=== PATIENT | male | born 1960 | race American Indian/Alaskan Native ===

== ENCOUNTER 2020-09-07 06:12 | Day surgery (SDC) | payer BC ==
[~2020-09-07 06:12] MED LIST: LACTATED RINGERS 1,000 ML IV SCH; MIDAZOLAM 2 MG/2 ML INJ IV NR
--- NOTE | 2020-09-07 07:14 | Anesthesia Day of Surgery ---
Anesthesia Day of Surgery - Day of Surgery Patient Examined: Yes Patient H&P Reviewed: Yes Patient is NPO: Yes
--- NOTE | 2020-09-07 07:14 | Anesthesia Consultation ---
Anesthesia Consult and Med Hx Date of service: 09/07/20 - Airway Anesthetic Teeth Evaluation: Good ROM Head & Neck: Adequate Mental/Hyoid Distance: Adequate Mallampati Class: Class II Intubation Access Assessment: Good - Pulmonary Exam CTA: Yes - Cardiac Exam Cardiac Exam: RRR - Pre-Operative Health Status ASA Pre-Surgery Classification: ASA2 Proposed Anesthetic Plan: General - Central Nervous System Hx Psychiatric Problems: No - Endocrine Hx Non-Insulin Dependent Diabetes: Yes - Other Systems Hx Alcohol Use: Yes (Occas) Hx Cancer: No
[2020-09-07] MEDS ORDERED: LIDOCAINE MPF (2%) 20 MG/1 ML VIAL 5 ML ONE (07:42)
[2020-09-07] MEDS ORDERED: propofoL 200 MG/20 ML VIAL IV ONE (07:43)
[2020-09-07] MEDS ORDERED: fentaNYL 100 MCG/2 ML INJ IV PRN (08:00)
[2020-09-07] MEDS ORDERED: ONDANSETRON 4 MG/2 ML INJ ONE (08:00)
[2020-09-07] MEDS ORDERED: GENTAMICIN/NS 80 MG/100 ML 100 ML IV SCH (08:00)
[2020-09-07] MEDS ORDERED: dexAMETHasone 20 MG/5 ML VIAL ONE (08:00)
[2020-09-07] MEDS ORDERED: ONDANSETRON 4 MG/2 ML INJ IV PRN (08:00)
[2020-09-07] MEDS ORDERED: KETOROLAC 30 MG/1 ML INJ ONE (08:00)
[2020-09-07] MEDS ORDERED: ceFAZolin/STERILE WATER 2 GM/20 ML SYRINGE IV NR (08:00)
[2020-09-07] MEDS ORDERED: WATER FOR IRRIG STERILE 1,500 ML BOTTLE IR ONE (08:05)
[2020-09-07] MEDS ORDERED: WATER FOR IRRIG STERILE 2000 ML IR ONE (08:05)
[2020-09-07] MEDS ORDERED: IOHEXOL 300 MG/ML 50ML IV ONE (08:05)
--- NOTE | 2020-09-07 08:37 | Short Stay Summary ---
Short Stay Documentation Date of service: 09/07/20 - History H&P: obtained from office - Allergies and Medications Current Medications: Allergies No Known Allergies Allergy (Unverified 08/31/20 15:31) Home Medications Medication Instructions Recorded Confirmed Last Taken Type Ergocalciferol(Vitamin D2)(Nf) 400 unit PO DAILY 08/31/20 08/31/20 09/06/20 History [Vitamin D (Nf)] [place]-3 Fatty Acids/Fish Oil [Fish 1,000 mg PO DAILY 08/31/20 08/31/20 09/06/20 History Oil] glipiZIDE [Glucotrol] 5 mg PO QDAY 08/31/20 08/31/20 09/06/20 History lisinopriL [Lisinopril] 10 mg PO DAILY 08/31/20 08/31/20 09/06/20 History metFORMIN [Glucophage] 500 mg PO QDAY 08/31/20 08/31/20 09/06/20 History Active Medications Cefazolin Sodium (Cefazolin/Sterile Water 2 Gm/20 Ml Syringe) 2 gm IV PREOP NR Stop: 09/07/20 21:00 Fentanyl (Fentanyl 100 Mcg/2 Ml Inj) 50 mcg IV Q5MIN PRN PRN Reason: Pain , Severe (7-10) Stop: 09/07/20 17:00 Lactated Ringer's (Lactated Ringers) 1,000 mls @ 100 mls/hr IV DIRECT KAREN Stop: 09/07/20 23:59 Last Admin: 09/07/20 06:55 Dose: 100 mls/hr Documented by: Gentamicin Sulfate/Sodium Chloride (Gentamicin/Ns 80 Mg/100 Ml) 100 mls @ 200 mls/hr IV ONCE KAREN Stop: 09/07/20 21:00 Midazolam HCl (Midazolam 2 Mg/2 Ml Inj) 2 mg IV PREOP NR Stop: 09/07/20 20:00 Last Admin: 09/07/20 07:10 Dose: 2 mg Documented by: Ondansetron HCl (Ondansetron 4 Mg/2 Ml Inj) 4 mg IV ONCE PRN PRN Reason: Nausea And Vomiting Stop: 09/07/20 18:00 - Brief post op/procedure progress note Date of procedure: 09/07/20 Pre-op diagnosis: elevate psa, BPH Post-op diagnosis: same Procedure: cysto, rpg, pus 30cc & biopsy Anesthesia: GETA Surgeon: MELINDA ELENA Estimated blood loss: minimal Pathology: list Specimen disposition: to lab (prostate cores) Condition: stable - Hospital course Hospital course: bactrim & norco-erx done, post op info on chart - Disposition Condition at discharge: Stable Disposition: DC-01 TO HOME OR SELFCARE Short Stay Discharge Plan Follow up with: PRIMARY CARE, [Primary Care Provider] - 7 Days
--- NOTE | 2020-09-07 08:49 | Ultrasound Report ---
Ultrasound transrectal HISTORY: Elevated PSA, guidance for prostate biopsy FINDINGS: Transrectal ultrasound guidance was provided by radiology for prostate biopsy by urology. T he prostate gland measures 3.4 x 2.1 x 4.1 cm with volume of 15.2 cc. Please correlate with the proce dural report by urology as needed. IMPRESSION: Successful ultrasound-guided prostate biopsy. Signer Name: Bruce Hyatt Jr, MD Signed: 09/07/2020 8:44 AM Workstation Name: [id number]
[2020-09-07] MEDS ORDERED: ACETAMINOPHEN 500 MG TAB PO SCH (09:00)
--- NOTE | 2020-09-07 09:10 | Fluoroscopy Report ---
FLUOROSCOPY RETROGRADE UROGRAPHY HISTORY: Elevated PSA FINDINGS: Fluoroscopy was provided by radiology during retrograde urography by the urologist. There i s normal filling of both renal collecting systems. No filling defect or abnormal dilatation is identi fied. IMPRESSION: Unremarkable bilateral retrograde pyelograms Fluoroscopy time: 21 seconds Fluoroscopic images: 7 Signer Name: Bruce Hyatt Jr, MD Signed: 09/07/2020 9:06 AM Workstation Name: [id number]
--- NOTE | 2020-09-07 09:23 | Operative Report ---
DATE OF SURGERY: 09/07/2020 PREOPERATIVE DIAGNOSES: Elevated PSA 13, right prostate nodule, benign prostate hypertrophy. POSTOPERATIVE DIAGNOSES: Elevated PSA 13, right prostate nodule, benign prostate hypertrophy. PROCEDURE: Cystoscopy, bilateral retrograde pyelograms, transrectal ultrasound biopsy of prostate 30 g gland. SURGEON: Magan Hart MD. ANESTHESIA: General. ESTIMATED BLOOD LOSS: Minimal. FLUIDS: Crystalloid. COMPLICATIONS: No complications. INDICATIONS: The patient is a 60-year-old gentleman with an elevated PSA. He has had 2 prostate biopsies in the past done in [place] by Dr. Doc Hawley that were negative (verbal). Recent PSA in our office was 13, MRI of the prostate revealed a 1.3 cm right prostatic lesion. We discussed fusion biopsy versus saturation biopsy. He agreed to proceed under anesthesia. DESCRIPTION OF PROCEDURE: The patient was taken to the operative suite, placed in the supine position. After adequate general anesthesia, he was prepped and draped in a sterile fashion. He was placed in the dorsal lithotomy position. Pancystourethroscopy was performed with a 22-[place] cystoscope. No urethral abnormalities. His prostate did display some mild to moderate trilobar obstruction. Bladder, no tumors or stones were noted. Had some mild calcification suggestive of small stones. Also, bladder was noted to have mild diffuse trabeculation. Both ureteral orifices in normal position. Bilateral retrograde pyelograms were obtained with an 8-[place] Merlyn catheter and 8 mL of contrast. No filling defects or obstruction. Also, of note, had two devices noted in the lumbar area suggestive of previous surgery. Next, using a transrectal probe, transrectal ultrasound of the prostate was performed in sagittal and transverse plane revealing a 30 gram gland. There was an area of multiple calcifications on the right side. A 24 core biopsy was taken at the base, mid apex of the prostate. Two additional cores were taken from this right prosthetic area and was labeled nodule. Rectal exam was benign. Bladder was drained. He was extubated and taken to recovery room. He will go home on Bactrim and [place]. TID: [id number] RECEIPT: [id number] C/STD
--- NOTE | 2020-09-07 09:37 | Post Anesthesia Evaluation ---
- Post Anesthesia Evaluation Patient Participated: Yes Airway Patent: Yes Stable Respiratory Function: Yes Nausea/Vomiting: No Temp > 96.8F: Yes Pain Manageable: Yes Adequeate Hydration: Yes Anesthesia Complications: No
[2020-09-07 11:00] VITALS: BP 136/85
== END 2020-09-07 09:35 | disposition home or self-care (01) ==
LOC: OR 06:12
PROVIDERS: ATTEND Urology
DX: R97.20 Elevated prostate specific antigen [PSA] (principal); N40.0 Benign prostatic hyperplasia without lower urinary tract symptoms; E11.9 Type 2 diabetes mellitus without complications; Z72.89 Other problems related to lifestyle; Z79.899 Other long term (current) drug therapy; Z88.8 Allergy status to other drugs, medicaments and biological substances; Z79.84 Long term (current) use of oral hypoglycemic drugs; Z98.890 Other specified postprocedural states
CPT/HCPCS: 52005; 55700; 74420; 76872; 82962; 88305; A4217; C1758; J0690; J1100; J1580; J1885; J2250; J2405; J2704; J3010; J7120; Q9967

== ENCOUNTER 2021-09-11 06:06 | Observation (INO) | payer BC ==
[2021-09-05 11:42] LABS: Hematocrit 37.5 % (35.5-45.6); Hemoglobin 12.5 gm/dl (11.8-15.2); Mean Corpuscular HGB Conc 33 % (32-34); Mean Corpuscular Volume 83 fl (84-94); Platelet Count 182 K/mm3 (140-440); Red Cell Distribution Width 14.8 % (13.2-15.2)
[2021-09-05 11:59] LABS: Alanine Aminotransferase 19 units/L (7-56); Albumin 4.6 g/dL (3.9-5); BUN/Creatinine Ratio 13; Blood Urea Nitrogen 15 mg/dL (9-20); Calcium 9.7 mg/dL (8.4-10.2); Hemolysis Index 8
[2021-09-11] MEDS ORDERED: BACTERIOSTATIC SODIUM CHLORIDE 0.9% 30 ML VIAL INFILTRATI ONE (06:41)
[2021-09-11] MEDS ORDERED: LACTATED RINGERS 1,000 ML IV SCH (06:45)
[2021-09-11] MEDS ORDERED: ceFAZolin/Water 2 GM/20 ML 2 GM/20 ML SYRINGE IV ONE (07:01)
--- NOTE | 2021-09-11 07:29 | Anesthesia Day of Surgery ---
Anesthesia Day of Surgery - Day of Surgery Patient Examined: Yes Patient H&P Reviewed: Yes Patient is NPO: Yes
--- NOTE | 2021-09-11 07:30 | Anesthesia Consultation ---
Anesthesia Consult and Med Hx Date of service: 09/11/21 - Airway Anesthetic Teeth Evaluation: Good, Crowns ROM Head & Neck: Adequate Mental/Hyoid Distance: Adequate Mallampati Class: Class II - Pre-Operative Health Status ASA Pre-Surgery Classification: ASA2 Proposed Anesthetic Plan: General Nerve Block: TAP - Pulmonary Hx Smoking: No Hx Respiratory Symptoms: No (+2FS) Hx Sleep Apnea: No (VINCENT PRE SCREEN LOW RISK) - Cardiovascular System Hx Hypertension: No (TAKES LISINOPRIL FOR KIDNEY PROTECTION ONLY) - Central Nervous System Hx Psychiatric Problems: No - Gastrointestinal Hx Gastroesophageal Reflux Disease: No - Endocrine Hx Non-Insulin Dependent Diabetes: Yes - Hematic Hx Anemia: No - Other Systems Hx Alcohol Use: Yes (Occas) Hx Cancer: No Hx Obesity: No
[2021-09-11] MEDS ORDERED: BUPIVACAINE/PF (0.25%) 2.5 MG/ML 30 ML VIAL INFILTRATI ONE (07:38)
[2021-09-11] MEDS ORDERED: dexAMETHasone 4 MG/ML VIAL ONE (07:38)
[2021-09-11] MEDS ORDERED: LIDOCAINE MPF (2%) 20 MG/1 ML VIAL 5 ML ONE (07:39)
[2021-09-11] MEDS ORDERED: ROCURONIUM 50 MG/5 ML INJ IV ONE ×2 (07:39→10:08)
[2021-09-11] MEDS ORDERED: propofoL 200 MG/20 ML VIAL IV ONE (07:40)
[2021-09-11] MEDS ORDERED: LIDOCAINE (1%) 10 MG/1 ML VIAL 20 ML MDV ONE (07:45)
[2021-09-11] MEDS ORDERED: CALCIUM CHLORIDE 1,000 MG/10 ML SYRINGE IV ONE ×3 (07:47→09:35)
[2021-09-11] MEDS ORDERED: THROMBIN (RECOMBINANT) 5,000 UNIT VIAL TP ONE ×2 (07:47→09:35)
[2021-09-11] MEDS: MIDAZOLAM 2 MG/2 ML INJ IV NR ×2 (07:59→08:05)
[2021-09-11] MEDS ORDERED: MAGNESIUM OXIDE 400 MG TAB PO SCH (08:00)
[2021-09-11] MEDS ORDERED: ONDANSETRON 4 MG/2 ML INJ IV PRN ×2 (08:00→16:00)
[2021-09-11] MEDS ORDERED: CELECOXIB 200 MG CAP PO NR (08:00)
[2021-09-11] MEDS ORDERED: HYDROmorphone 1 MG/1 ML INJ IV PRN ×2 (08:00)
[2021-09-11] MEDS ORDERED: fentaNYL 100 MCG/2 ML INJ IV SCH (08:00)
[2021-09-11] MEDS ORDERED: ACETAMINOPHEN 500 MG TAB PO SCH (08:00)
[2021-09-11] MEDS ORDERED: ceFAZolin/STERILE WATER 2 GM/20 ML SYRINGE IV NR (08:30)
[2021-09-11] MEDS ORDERED: LACTATED RINGERS 1,000 ML ONE (09:34)
[2021-09-11] MEDS ORDERED: dexAMETHasone 20 MG/5 ML VIAL ONE (09:34)
[2021-09-11] MEDS ORDERED: ANTICOAGULANT SOD CITRATE SOLUTION MC ONE (09:35)
[2021-09-11] MEDS ORDERED: SODIUM CHLORIDE 0.9% IRRIG SOLN 2000 ML IR ONE (09:37)
[2021-09-11] MEDS ORDERED: WATER FOR IRRIG STERILE 1,500 ML BOTTLE IR ONE (09:37)
[2021-09-11] MEDS ORDERED: SODIUM CHLORIDE 0.9% 100 ML ONE (10:31)
[2021-09-11] MEDS ORDERED: GLYCOPYRROLATE 0.4 MG/2 ML INJ ONE (11:15)
[2021-09-11] MEDS ORDERED: NEOSTIGMINE 10MG/10 ML INJ MDV ONE (11:15)
[2021-09-11] MEDS ORDERED: INSULIN LISPRO 100 UNIT/ML SUB-Q NR (12:00)
--- NOTE | 2021-09-11 12:07 | Post Anesthesia Evaluation ---
- Post Anesthesia Evaluation Patient Participated: Yes Airway Patent: Yes Stable Respiratory Function: Yes Nausea/Vomiting: No Temp > 96.8F: Yes Pain Manageable: Yes Adequeate Hydration: Yes Anesthesia Complications: No Block Receding Appropriately: Yes Patient on Ventilator: No
--- NOTE | 2021-09-11 12:26 | Operative Report ---
DATE OF SURGERY: 09/11/2021 PREOPERATIVE DIAGNOSIS: Prostate cancer. POSTOPERATIVE DIAGNOSIS: Prostate cancer. PROCEDURES: Robotic-assisted laparoscopic prostatectomy, bladder neck suspension, stem cell placement. SURGEON: Magan Hart MD ANESTHESIA: General. LEAD TECHNICAL WRITER: Janeth Lopez. ESTIMATED BLOOD LOSS: 450 mL. FLUIDS: Crystalloid, 200 mL Cell Saver. COMPLICATIONS: No complications. DRAINS: Amando-French drain x 1. INDICATIONS: This patient is a 61-year-old gentleman known to our service, had moved from [place] with a diagnosis of an elevated PSA and biopsy negative x 2. PSA continued to rise to 13. Repeat biopsy revealed [place] 6 adenocarcinoma of the prostate. CT bone scan revealed a right-sided renal mass for which he underwent a partial nephrectomy by Dr. Castorena in our group. He presents now for treatment of his prostate cancer. Risks, benefits, complications were explained. He was notified how we use stem cells. DESCRIPTION OF PROCEDURE: The patient was taken to the operative suite, placed in a supine position. After adequate general anesthesia, he was placed in modified dorsal lithotomy position, prepped and draped in a sterile fashion. De La Paz catheter was placed on the operative field. A 1 cm supraumbilical incision was made with a Bovie. Anterior traction was placed. A Veress needle was used for drop test, which was negative. Opening pressure was 2 cm of water. Insufflation of the abdomen to 15 cm of water was performed without difficulty. The 0-degree lens was placed in the supraumbilical port under direct vision. No signs of metastasis or injury. The other ports were placed under direct vision as well. They were marked, 15 cm cephalad to pubic symphysis, 9 cm lateral and then additional 9 cm lateral were used for the 8 mm robotic ports on the left, an 8 mm robotic port on the right as well as a 10 mm and 5 mm helper port. The patient was then placed in exaggerated dorsal lithotomy position. Robotic cart was docked between the legs. Second arch was then scored posterior to the prostate, exposing the seminal vesicles and vas deferens, which was dissected out. Vas deferens was transected bilaterally. Attention was then taken to the anterior abdominal wall laterally. Lateral umbilical ligament was scored and then across the midline to allow the prostate and bladder to drop. Pubic rami could be appreciated. The endopelvic fascia was opened bilaterally. Dorsal vein complex was controlled with 60 mm vascular stapler. Dissection was taken to the bladder neck. The anterior bladder neck was opened, exposing the De La Paz, it was deflated and used for anterior traction. Posterior bladder neck was transected exposing the seminal vesicles and vas deferens, which was pulled anteriorly. Lateral pedicles were controlled to the mid aspect of the prostate using a 60 mm vascular stapler. The dissection was then an atraumatic dissection with the hugh to try to spare the neurovascular bundle on the anterior rectum. There were some neurovascular fibers that could be appreciated and were spared bilaterally. The anterior urethra distal to the prostate was transected. De La Paz catheter was pulled into the urethra. Posterior aspect was transected. Dissection of the prostate off the rectum was performed with the hugh. There was a nodular area at the left apex. This was excised with the hugh separately and was sent as a periprostatic mass. Copious irrigation was performed. Adequate hemostasis was achieved. Prostate was placed in the EndoCatch bag. Bladder neck reconstruction was performed using a 2-0 Vicryl in interrupted fashion at the 5 o'clock position. A double-armed V-Loc stitch was placed at the bladder neck at the 6 o'clock position of the bladder neck, corresponding aspect of the urethra, running stitch was performed bilaterally. A new 18-Sami De La Paz catheter was advanced into the bladder. Anastomosis was cinched down. It was irrigated. No leak. Bladder neck suspension was performed, placing the V-Loc stitch into the posterior aspect of the pubic rami bilaterally. [place] were removed. A 4 x 4 stem cell was cut in half. A 2 x 4 segment was placed on the neurovascular bundle bilaterally. Platelet rich plasma and platelet poor plasma was injected around the urethra as well as a platelet membrane. Amando-French drain was placed on top of the bladder and was brought out through left-sided robotic port. The robot was undocked. The patient was placed in a supine position. Supraumbilical incision was extended slightly to allow removal of the prostate. It was then closed with 0 Vicryl in a [id number] fashion. Skin was closed with a 2-0 Monocryl in a subcuticular fashion. De La Paz catheter sideport was folded over and tied with 0 silk. The patient tolerated the procedure well and was extubated and taken to recovery room. He will be observed overnight and go home on Bactrim and [place]. TID: [id number] RECEIPT: [id number] RACHEL/SAY
[2021-09-11] MEDS ORDERED: INSULIN LISPRO 100 UNIT/ML SUB-Q ONE ×2 (14:00→16:00)
[2021-09-11] MEDS ORDERED: diphenhydrAMINE 25 MG CAP PO PRN (16:00)
[2021-09-11] MEDS ORDERED: MORPHINE 4 MG/1 ML INJ IV PRN (16:00)
[2021-09-11] MEDS ORDERED: NALOXONE 0.4 MG/1 ML INJ IV PRN (16:00)
[2021-09-11] MEDS ORDERED: ACETAMINOPHEN 325 MG TAB PO PRN (16:00)
--- NOTE | 2021-09-11 16:09 | Short Stay Summary ---
Short Stay Documentation Date of service: 09/11/21 - History H&P: obtained from office - Allergies and Medications Current Medications: Allergies coconut Adverse Reaction (Verified 09/11/21 06:49) EYE SWELLING,NASL IRRITATION,SNEEZING tomato Adverse Reaction (Verified 09/11/21 06:49) EYE SWELLING,NASL IRRITATION,SNEEZING Home Medications Medication Instructions Recorded Confirmed Last Taken Type Ergocalciferol(Vitamin D2)(Nf) 400 unit PO DAILY 08/31/20 08/30/21 09/10/21 History [Vitamin D (Nf)] [place]-3 Fatty Acids/Fish Oil [Fish 1,000 mg PO DAILY 08/31/20 08/30/21 09/10/21 History Oil] glipiZIDE [Glucotrol] 5 mg PO QDAY 08/31/20 08/30/21 09/10/21 History lisinopriL [Lisinopril] 10 mg PO DAILY 08/31/20 08/30/21 09/10/21 History metFORMIN [Glucophage] 500 mg PO QDAY 08/31/20 08/30/21 09/10/21 History Aspirin [[place] Aspirin EC] 81 mg PO DAILY 08/30/21 09/11/21 09/03/21 History Active Medications Acetaminophen (Acetaminophen 500 Mg Tab) 1,000 mg PO PREOP KAREN Stop: 09/11/21 20:00 Last Admin: 09/11/21 07:47 Dose: 1,000 mg Acetaminophen (Acetaminophen 325 Mg Tab) 650 mg PO Q4H PRN PRN Reason: Pain, Mild (1-3)/Fever > 100.5 Hydrocodone Bitart/Acetaminophen (Hydrocodone/Acetaminophen 5-325 Mg Tab) 2 each PO Q4H PRN PRN Reason: Pain, Moderate (4-6) Cefazolin Sodium (Cefazolin/Sterile Water 2 Gm/20 Ml Syringe) 2 gm IV PREOP NR Stop: 09/11/21 19:00 Celecoxib (Celecoxib 200 Mg Cap) 400 mg PO PREOP NR Stop: 09/11/21 20:00 Last Admin: 09/11/21 07:47 Dose: 400 mg Diphenhydramine HCl (Diphenhydramine 25 Mg Cap) 25 mg PO Q6H PRN PRN Reason: Itching Fentanyl (Fentanyl 100 Mcg/2 Ml Inj) 100 mcg IV PREOP KAREN Stop: 09/11/21 20:00 Last Admin: 09/11/21 07:59 Dose: 100 mcg Glipizide (Glipizide 5 Mg Tab) 5 mg PO QDAY KAREN Hydromorphone HCl (Hydromorphone 1 Mg/1 Ml Inj) 0.25 mg IV Q10MIN PRN PRN Reason: Pain, Moderate (4-6) Stop: 09/11/21 17:00 Hydromorphone HCl (Hydromorphone 1 Mg/1 Ml Inj) 0.5 mg IV Q10MIN PRN PRN Reason: Pain , Severe (7-10) Stop: 09/11/21 17:00 Lactated Ringer's (Lactated Ringers) 1,000 mls @ 100 mls/hr IV DIRECT KAREN Last Admin: 09/11/21 07:22 Dose: 100 mls/hr Sodium Chloride (Nacl 0.9% 1000 Ml) 1,000 mls @ 125 mls/hr IV DIRECT KAREN Cefazolin Sodium (Ancef/Ns 1 Gm/50 Ml) 1 gm in 50 mls @ 100 mls/hr IV Q8H KAREN; Protocol Stop: 09/12/21 00:29 Lisinopril (Lisinopril 10 Mg Tab) 10 mg PO DAILY KAREN Magnesium Oxide (Magnesium Oxide 400 Mg Tab) 400 mg PO PREOP KAREN Stop: 09/11/21 20:00 Last Admin: 09/11/21 07:47 Dose: 400 mg Metformin HCl (Metformin 500 Mg Tab) 500 mg PO QDAY KAREN Methocarbamol (Methocarbamol 750 Mg Tab) 1,500 mg PO PREOP KAREN Stop: 09/11/21 20:00 Last Admin: 09/11/21 07:47 Dose: 1,500 mg Midazolam HCl (Midazolam 2 Mg/2 Ml Inj) 2 mg IV PREOP NR Stop: 09/11/21 23:59 Last Admin: 09/11/21 08:05 Dose: 2 mg Morphine Sulfate (Morphine 4 Mg/1 Ml Inj) 4 mg IV Q4H PRN PRN Reason: Pain , Severe (7-10) Naloxone HCl (Naloxone 0.4 Mg/1 Ml Inj) 0.1 mg IV Q2MIN PRN PRN Reason: Res Rate </= 8 or 02 SAT < 92% Ondansetron HCl (Ondansetron 4 Mg/2 Ml Inj) 4 mg IV ONCE PRN PRN Reason: Nausea And Vomiting Stop: 09/11/21 17:00 Ondansetron HCl (Ondansetron 4 Mg/2 Ml Inj) 4 mg IV Q8H PRN PRN Reason: Nausea And Vomiting Zolpidem Tartrate (Zolpidem 5 Mg Tab) 5 mg PO QHS PRN PRN Reason: Sleep - Brief post op/procedure progress note Date of procedure: 09/11/21 Pre-op diagnosis: PROSTATE CANCER Post-op diagnosis: same Procedure: ROBOTIC PROSTATECTOMY Anesthesia: GETA Surgeon: MELINDA ELENA Estimated blood loss: other (500) Pathology: list (PROSTATE) Specimen disposition: to lab Condition: stable - Hospital course Hospital course: POST OP INFO ON CHART (PT HAS PAIN MEDS & ABX) - Disposition Condition at discharge: Stable Disposition: 01 HOME / SELF CARE / HOMELESS Short Stay Discharge Plan Follow up with: PRIMARY CARE, [Primary Care Provider] - 7 Days
[2021-09-11] MEDS: HYDROcodone/ACETAMINOPHEN 5-325 MG TAB PO PRN ×2 (17:47→23:40)
--- NOTE | 2021-09-11 18:09 | Consultation ---
History of Present Illness - Reason for Consult Consult date: 09/11/21 Medical management Requesting physician: MELINDA ELENA - History of Present Illness S/p robotic assisted laparoscopic prostatectomy, bladder neck suspension and stem cell placement. Postop patient doing well. No shortness of breath or chest pain. Lying comfortably. Slight pain present. Past History Past Medical History: diabetes, hypertension, other (Vitamin D deficiency) Past Surgical History: Other (Robotic prostatectomy) Social history: lives with family, full code Family history: hypertension Medications and Allergies Allergies Allergy/AdvReac Type Severity Reaction Status Date / Time coconut AdvReac EYE Verified 09/11/21 06:49 SWELLING,NASL IRRITATION,SNEEZING tomato AdvReac EYE Verified 09/11/21 06:49 SWELLING,NASL IRRITATION,SNEEZING Home Medications Medication Instructions Recorded Confirmed Last Taken Type Ergocalciferol(Vitamin D2)(Nf) 400 unit PO DAILY 08/31/20 08/30/21 09/10/21 History [Vitamin D (Nf)] [place]-3 Fatty Acids/Fish Oil [Fish 1,000 mg PO DAILY 08/31/20 08/30/21 09/10/21 History Oil] glipiZIDE [Glucotrol] 5 mg PO QDAY 08/31/20 08/30/21 09/10/21 History lisinopriL [Lisinopril] 10 mg PO DAILY 08/31/20 08/30/21 09/10/21 History metFORMIN [Glucophage] 500 mg PO QDAY 08/31/20 08/30/21 09/10/21 History Aspirin [[place] Aspirin EC] 81 mg PO DAILY 08/30/21 09/11/21 09/03/21 History Active Meds: Active Medications Acetaminophen (Acetaminophen 500 Mg Tab) 1,000 mg PO PREOP KAREN Stop: 09/11/21 20:00 Last Admin: 09/11/21 07:47 Dose: 1,000 mg Acetaminophen (Acetaminophen 325 Mg Tab) 650 mg PO Q4H PRN PRN Reason: Pain, Mild (1-3)/Fever > 100.5 Hydrocodone Bitart/Acetaminophen (Hydrocodone/Acetaminophen 5-325 Mg Tab) 2 each PO Q4H PRN PRN Reason: Pain, Moderate (4-6) Last Admin: 09/11/21 17:47 Dose: 2 each Cefazolin Sodium (Cefazolin/Sterile Water 2 Gm/20 Ml Syringe) 2 gm IV PREOP NR Stop: 09/11/21 19:00 Celecoxib (Celecoxib 200 Mg Cap) 400 mg PO PREOP NR Stop: 09/11/21 20:00 Last Admin: 09/11/21 07:47 Dose: 400 mg Diphenhydramine HCl (Diphenhydramine 25 Mg Cap) 25 mg PO Q6H PRN PRN Reason: Itching Fentanyl (Fentanyl 100 Mcg/2 Ml Inj) 100 mcg IV PREOP KAREN Stop: 09/11/21 20:00 Last Admin: 09/11/21 07:59 Dose: 100 mcg Glipizide (Glipizide 5 Mg Tab) 5 mg PO QDDIAB KAREN Sodium Chloride (Nacl 0.9% 1000 Ml) 1,000 mls @ 125 mls/hr IV DIRECT KAREN Cefazolin Sodium (Ancef/Ns 1 Gm/50 Ml) 1 gm in 50 mls @ 100 mls/hr IV Q8H KAREN; Protocol Stop: 09/12/21 02:29 Lisinopril (Lisinopril 10 Mg Tab) 10 mg PO DAILY KAREN Magnesium Oxide (Magnesium Oxide 400 Mg Tab) 400 mg PO PREOP KAREN Stop: 09/11/21 20:00 Last Admin: 09/11/21 07:47 Dose: 400 mg Metformin HCl (Metformin 500 Mg Tab) 500 mg PO QDDIAB KAREN Methocarbamol (Methocarbamol 750 Mg Tab) 1,500 mg PO PREOP KAREN Stop: 09/11/21 20:00 Last Admin: 09/11/21 07:47 Dose: 1,500 mg Midazolam HCl (Midazolam 2 Mg/2 Ml Inj) 2 mg IV PREOP NR Stop: 09/11/21 23:59 Last Admin: 09/11/21 08:05 Dose: 2 mg Morphine Sulfate (Morphine 4 Mg/1 Ml Inj) 4 mg IV Q4H PRN PRN Reason: Pain , Severe (7-10) Naloxone HCl (Naloxone 0.4 Mg/1 Ml Inj) 0.1 mg IV Q2MIN PRN PRN Reason: Res Rate </= 8 or 02 SAT < 92% Ondansetron HCl (Ondansetron 4 Mg/2 Ml Inj) 4 mg IV Q8H PRN PRN Reason: Nausea And Vomiting Zolpidem Tartrate (Zolpidem 5 Mg Tab) 5 mg PO QHS PRN PRN Reason: Sleep Review of Systems All systems: negative Exam - Constitutional Vitals: Temp Pulse Resp BP Pulse Ox 97.6 F 82 14 114/63 97 09/11/21 14:30 09/11/21 14:30 09/11/21 14:30 09/11/21 14:30 09/11/21 14:30 General appearance: Present: no acute distress, well-nourished - EENT Eyes: Present: PERRL ENT: hearing intact, clear oral mucosa - Neck Neck: Present: supple, normal ROM - Respiratory Respiratory effort: normal Respiratory: bilateral: CTA - Cardiovascular Heart rate: 78 Rhythm: regular Heart Sounds: Present: S1 & S2. Absent: rub, click - Extremities Extremities: pulses symmetrical, No edema Peripheral Pulses: within normal limits - Abdominal General gastrointestinal: Present: soft, non-tender, non-distended, normal bowel sounds Male genitourinary: Present: normal - Integumentary Integumentary: Present: clear, warm, dry - Musculoskeletal Musculoskeletal: gait normal, strength equal bilaterally - Psychiatric Psychiatric: appropriate mood/affect, intact judgment & insight - Neurologic Neurologic: CNII-XII intact, moves all extremities Results - Labs CBC & Chem 7: 09/05/21 11:35 09/05/21 11:35 Labs: Abnormal lab results 09/11/21 09/11/21 09/11/21 Range/Units 06:55 11:40 13:23 POC Glucose 149 H 211 H 243 H (70-105) mg/dL 09/11/21 Range/Units 14:54 POC Glucose 232 H (70-105) mg/dL Assessment and Plan - Patient Problems (1) Status post prostatectomy Current Visit: Yes Status: Acute Plan to address problem: S/p robotic prostatectomy with bladder neck suspension and stem cell placement Postop patient doing well (2) HTN (hypertension) Current Visit: Yes Status: Chronic Qualifiers: Hypertension type: primary hypertension Qualified Code(s): I10 - Essential (primary) hypertension Plan to address problem: Continue lisinopril and adjust medications as necessary (3) T2DM (type 2 diabetes mellitus) Current Visit: Yes Status: Chronic Qualifiers: Diabetes mellitus long-term insulin use: without intermediate school teacher use Plan to address problem: Check hemoglobin A1c Continue glipizide and metformin Accu-Cheks AC at bedtime and coverage (4) Vitamin D deficiency Current Visit: Yes Status: Chronic Plan to address problem: Continue vitamin D (5) DVT prophylaxis Current Visit: Yes Status: Acute Plan to address problem: On SCDs and GI prophylaxis (6) Advance care planning Current Visit: Yes Status: Acute Plan to address problem: Disease education conducted, care plan discussed, diagnosis discussed, patient is full code. Patient acknowledges understanding and agreement with care plan +30 minutes.
[2021-09-11] MEDS: SODIUM CHLORIDE 0.9% 1000 ML 1,000 ML IV SCH (18:38)
[2021-09-11] MEDS: ceFAZolin/NS 1 GM/50 ML 1 GM/50 ML BAG IV SCH (21:38)
[2021-09-11] MEDS ORDERED: ZOLPIDEM 5 MG TAB PO PRN (22:00)
[2021-09-11] MEDS: INSULIN LISPRO 100 UNIT/ML SUB-Q SCH (22:43)
[2021-09-12] MEDS: SODIUM CHLORIDE 0.9% 1000 ML 1,000 ML IV SCH (03:05)
[2021-09-12] MEDS: ceFAZolin/NS 1 GM/50 ML 1 GM/50 ML BAG IV SCH (05:23)
[2021-09-12] MEDS: HYDROcodone/ACETAMINOPHEN 5-325 MG TAB PO PRN ×3 (06:58→19:27)
[2021-09-12] MEDS: INSULIN LISPRO 100 UNIT/ML SUB-Q SCH ×3 (07:34→17:33)
--- NOTE | 2021-09-12 08:33 | Event Note ---
Date: 09/12/21 still with fair amount of pain ---lagunas clear raul removed keep overnight
--- NOTE | 2021-09-12 08:34 | Progress Note ---
Assessment and Plan Assessment and plan: Patient is POD 1 S/p robotic assisted laparoscopic prostatectomy, bladder neck suspension and stem cell placement. Postop patient doing well. No shortness of breath or chest pain. Lying comfortably. Slight pain present. (1) Status post prostatectomy Current Visit: Yes Status: Acute Plan to address problem: S/p robotic prostatectomy with bladder neck suspension and stem cell placement Postop patient doing well (2) HTN (hypertension) Current Visit: Yes Status: Chronic Qualifiers: Hypertension type: primary hypertension Qualified Code(s): I10 - Essential (primary) hypertension Plan to address problem: Continue lisinopril and adjust medications as necessary (3) T2DM (type 2 diabetes mellitus) Current Visit: Yes Status: Chronic Qualifiers: Diabetes mellitus terminal operations supervisor insulin use: without terminal operations supervisor use Plan to address problem: hemoglobin A1c-8.5 Continue glipizide and metformin ADJUST INSULIN for better control Accu-Cheks AC at bedtime and coverage (4) Vitamin D deficiency Current Visit: Yes Status: Chronic Plan to address problem: Continue vitamin D (5) DVT prophylaxis Current Visit: Yes Status: Acute Plan to address problem: On SCDs and GI prophylaxis (6) Advance care planning Current Visit: Yes Status: Acute Plan to address problem: Disease education conducted, care plan discussed, diagnosis discussed, patient is full code. Patient acknowledges understanding and agreement with care plan +30 minutes. clinicaly stable from medical standpoint for discharge when ok with Urology History Interval history: Patient seen and examined this morning no acute distress resting comfortably. Later in the day the patient was seen ambulating without any distress. Hospitalist Physical - Physical exam Narrative exam: VITAL SIGNS: Reviewed. GENERAL: The patient appears normally developed, Vital signs as documented. HEAD: No signs of head trauma. EYES: Pupils are equal. Extraocular motions intact. EARS: Hearing grossly intact. MOUTH: Oropharynx is normal. NECK: No adenopathy, no JVD. CHEST: Chest with clear breath sounds bilaterally. No wheezes, rales, or rhonchi. CARDIAC: Regular rate and rhythm. S1 and S2, without murmurs, gallops, or rubs. VASCULAR: No Edema. Peripheral pulses normal and equal in all extremities. ABDOMEN: Soft, non tender and non distended. No rebound or guarding, and no masses palpated. Bowel Sounds normal. MUSCULOSKELETAL: Good range of motion of all major joints. Extremities without clubbing, cyanosis or edema. NEUROLOGIC EXAM: Alert and oriented x 3 No focal sensory or strength deficits. Speech normal. Follows commands. PSYCHIATRIC: Mood normal. SKIN: detail exam as documented in skin assessment - Constitutional Vitals: Temp Pulse Resp BP Pulse Ox 97.8 F 81 18 127/76 97 09/12/21 06:41 09/12/21 06:41 09/12/21 06:41 09/12/21 06:41 09/12/21 06:41 General appearance: Present: no acute distress, well-nourished Results - Labs CBC & Chem 7: 09/12/21 10:42 09/12/21 10:42 Labs: Laboratory Last Values WBC 6.0 K/mm3 (4.5-11.0) 09/05/21 11:35 RBC 4.50 M/mm3 (3.65-5.03) 09/05/21 11:35 Hgb 12.5 gm/dl (11.8-15.2) 09/05/21 11:35 Hct 37.5 % (35.5-45.6) 09/05/21 11:35 MCV 83 fl (84-94) L 09/05/21 11:35 MCH 28 pg (28-32) 09/05/21 11:35 MCHC 33 % (32-34) 09/05/21 11:35 RDW 14.8 % (13.2-15.2) 09/05/21 11:35 Plt Count 182 K/mm3 (140-440) 09/05/21 11:35 Sodium 135 mmol/L (137-145) L 09/05/21 11:35 Potassium 4.9 mmol/L (3.6-5.0) 09/05/21 11:35 Chloride 98.4 mmol/L (98-107) 09/05/21 11:35 Carbon Dioxide 28 mmol/L (22-30) 09/05/21 11:35 Anion Gap 14 mmol/L 09/05/21 11:35 BUN 15 mg/dL (9-20) 09/05/21 11:35 Creatinine 1.2 mg/dL (0.8-1.3) 09/05/21 11:35 Estimated GFR > 60 ml/min 09/05/21 11:35 BUN/Creatinine Ratio 13 % 09/05/21 11:35 Glucose 283 mg/dL (75-100) H 09/05/21 11:35 POC Glucose 144 mg/dL (70-105) H 09/11/21 21:36 Calcium 9.7 mg/dL (8.4-10.2) 09/05/21 11:35 Total Bilirubin 0.40 mg/dL (0.1-1.2) 09/05/21 11:35 AST 20 units/L (5-40) 09/05/21 11:35 ALT 19 units/L (7-56) 09/05/21 11:35 Alkaline Phosphatase 52 units/L (35-129) 09/05/21 11:35 Total Protein 7.1 g/dL (6.3-8.2) 09/05/21 11:35 Albumin 4.6 g/dL (3.9-5) 09/05/21 11:35 Albumin/Globulin Ratio 1.8 % 09/05/21 11:35 SARS-CoV-2 (PCR) Negative (Negative) 09/05/21 11:30 Blood Type O POSITIVE 09/11/21 06:45 Antibody Screen Negative 09/11/21 06:45 [place] Paz/IV: Voiding Method Indwelling Catheter Active Medications - Current Medications Current Medications: Generic Name Dose Route Start Last Admin Trade Name Freq PRN Reason Stop Dose Admin Acetaminophen 650 mg 09/11/21 16:00 Acetaminophen 325 Mg Tab PO Q4H PRN Pain, Mild (1-3)/Fever > 100.5 Hydrocodone Bitart/Acetaminophen 2 each 09/11/21 16:00 09/12/21 06:58 Hydrocodone/Acetaminophen 5-325 Mg Tab PO 2 each Q4H PRN Administration Pain, Moderate (4-6) Diphenhydramine HCl 25 mg 09/11/21 16:00 Diphenhydramine 25 Mg Cap PO Q6H PRN Itching Glipizide 5 mg 09/12/21 08:00 Glipizide 5 Mg Tab PO QDDIAB KAREN Sodium Chloride 1,000 mls @ 125 mls/hr 09/11/21 16:00 09/12/21 03:05 Nacl 0.9% 1000 Ml IV 125 mls/hr DIRECT KAREN Administration Insulin Human Lispro 0 unit 09/11/21 22:00 05/02/22 22:43 Insulin Lispro 100 Unit/Ml SUB-Q Not Given ACHS [facility] Protocol Lisinopril 10 mg 09/12/21 10:00 Lisinopril 10 Mg Tab PO DAILY [facility] Metformin HCl 500 mg 09/12/21 08:00 Metformin 500 Mg Tab PO QDDIAB [facility] Morphine Sulfate 4 mg 09/11/21 16:00 Morphine 4 Mg/1 Ml Inj IV Q4H PRN Pain , Severe (7-10) Naloxone HCl 0.1 mg 09/11/21 16:00 Naloxone 0.4 Mg/1 Ml Inj IV Q2MIN PRN Res Rate </= 8 or 02 SAT < 92% Ondansetron HCl 4 mg 09/11/21 16:00 Ondansetron 4 Mg/2 Ml Inj IV Q8H PRN Nausea And Vomiting Zolpidem Tartrate 5 mg 09/11/21 22:00 Zolpidem 5 Mg Tab PO QHS PRN Sleep
[2021-09-12 10:55] LABS: Basophils % (Auto) 0.1 % (0.0-1.8); Hematocrit 33.2 % (35.5-45.6); Hemoglobin 10.8 gm/dl (11.8-15.2); Lymphocytes % (Auto) 7.1 % (13.4-35.0); Mean Corpuscular HGB Conc 33 % (32-34); Mean Corpuscular Volume 84 fl (84-94); Monocytes # (Auto) 1.3 K/mm3 (0.0-0.8); Monocytes % (Auto) 9.6 % (0.0-7.3); Platelet Count 151 K/mm3 (140-440); Red Blood Count 3.94 M/mm3 (3.65-5.03); Red Cell Distribution Width 14.9 % (13.2-15.2)
[2021-09-12] MEDS: LISINOPRIL 10 MG TAB PO SCH (11:10)
[2021-09-12] MEDS: glipiZIDE 5 MG TAB PO SCH (11:13)
[2021-09-12 11:14] LABS: BUN/Creatinine Ratio 10; Blood Urea Nitrogen 12 mg/dL (9-20); Calcium 8.3 mg/dL (8.4-10.2); Hemolysis Index 6
[2021-09-12] MEDS: metFORMIN 500 MG TAB PO SCH (11:14)
[2021-09-13] MEDS: HYDROcodone/ACETAMINOPHEN 5-325 MG TAB PO PRN ×2 (00:17→08:25)
[2021-09-13] MEDS: INSULIN LISPRO 100 UNIT/ML SUB-Q SCH ×2 (05:06→07:30)
[2021-09-13 05:29] VITALS: BP 108/66
[2021-09-13] MEDS: metFORMIN 500 MG TAB PO SCH (08:25)
[2021-09-13] MEDS: glipiZIDE 5 MG TAB PO SCH (08:25)
--- NOTE | 2021-09-13 08:40 | Progress Note ---
Assessment and Plan Assessment and plan: Patient is POD 2 S/p robotic assisted laparoscopic prostatectomy, bladder neck suspension and stem cell placement. Postop patient doing well. No shortness of breath or chest pain. Lying comfortably. Slight pain present. De [place] Paz remain in place but will be discontinued prior to discharge (1) Status post prostatectomy Current Visit: Yes Status: Acute Plan to address problem: S/p robotic prostatectomy with bladder neck suspension and stem cell placement Postop patient doing well (2) HTN (hypertension) Current Visit: Yes Status: Chronic Qualifiers: Hypertension type: primary hypertension Qualified Code(s): I10 - Essential (primary) hypertension Plan to address problem: Continue lisinopril and adjust medications as necessary (3) T2DM (type 2 diabetes mellitus) Current Visit: Yes Status: Chronic Qualifiers: Diabetes mellitus buttermaker helper insulin use: without halfway use Plan to address problem: hemoglobin A1c-8.5 Continue glipizide and metformin ADJUST INSULIN for better control Accu-Cheks AC at bedtime and coverage (4) Vitamin D deficiency Current Visit: Yes Status: Chronic Plan to address problem: Continue vitamin D (5) DVT prophylaxis Current Visit: Yes Status: Acute Plan to address problem: On SCDs and GI prophylaxis (6) Advance care planning Current Visit: Yes Status: Acute Plan to address problem: Disease education conducted, care plan discussed, diagnosis discussed, patient is full code. Patient acknowledges understanding and agreement with care plan +30 minutes. clinicaly stable from medical standpoint for discharge when ok with Urology History Interval history: Patient seen and examined this morning no acute distress resting comfortably. No new complaints Hospitalist Physical - Physical exam Narrative exam: VITAL SIGNS: Reviewed. GENERAL: The patient appears normally developed, Vital signs as documented. HEAD: No signs of head trauma. EYES: Pupils are equal. Extraocular motions intact. EARS: Hearing grossly intact. MOUTH: Oropharynx is normal. NECK: No adenopathy, no JVD. CHEST: Chest with clear breath sounds bilaterally. No wheezes, rales, or rhonchi. CARDIAC: Regular rate and rhythm. S1 and S2, without murmurs, gallops, or rubs. VASCULAR: No Edema. Peripheral pulses normal and equal in all extremities. ABDOMEN: Soft, non tender and non distended. No rebound or guarding, and no masses palpated. Bowel Sounds normal. MUSCULOSKELETAL: Good range of motion of all major joints. Extremities without clubbing, cyanosis or edema. NEUROLOGIC EXAM: Alert and oriented x 3 No focal sensory or strength deficits. Speech normal. Follows commands. PSYCHIATRIC: Mood normal. SKIN: detail exam as documented in skin assessment - Constitutional Vitals: Temp Pulse Resp BP Pulse Ox 98.0 F 68 16 108/66 99 09/13/21 05:21 09/13/21 05:21 09/13/21 05:21 09/13/21 05:21 09/13/21 08:14 General appearance: Present: no acute distress, well-nourished Results - Labs CBC & Chem 7: 09/12/21 10:42 09/12/21 10:42 Labs: Laboratory Last Values WBC 13.9 K/mm3 (4.5-11.0) H 09/12/21 10:42 RBC 3.94 M/mm3 (3.65-5.03) 09/12/21 10:42 Hgb 10.8 gm/dl (11.8-15.2) L 09/12/21 10:42 Hct 33.2 % (35.5-45.6) L 09/12/21 10:42 MCV 84 fl (84-94) 09/12/21 10:42 MCH 27 pg (28-32) L 09/12/21 10:42 MCHC 33 % (32-34) 09/12/21 10:42 RDW 14.9 % (13.2-15.2) 09/12/21 10:42 Plt Count 151 K/mm3 (140-440) 09/12/21 10:42 Lymph % (Auto) 7.1 % (13.4-35.0) L 09/12/21 10:42 [place] % (Auto) 9.6 % (0.0-7.3) H 09/12/21 10:42 Eos % (Auto) 0.0 % (0.0-4.3) 09/12/21 10:42 Baso % (Auto) 0.1 % (0.0-1.8) 09/12/21 10:42 Lymph # (Auto) 1.0 K/mm3 (1.2-5.4) L 09/12/21 10:42 [place] # (Auto) 1.3 K/mm3 (0.0-0.8) H 09/12/21 10:42 Eos # (Auto) 0.0 K/mm3 (0.0-0.4) 09/12/21 10:42 Baso # (Auto) 0.0 K/mm3 (0.0-0.1) 09/12/21 10:42 Seg Neutrophils % 83.2 % (40.0-70.0) H 09/12/21 10:42 Seg Neutrophils # 11.6 K/mm3 (1.8-7.7) H 09/12/21 10:42 Sodium 137 mmol/L (137-145) 09/12/21 10:42 Potassium 5.0 mmol/L (3.6-5.0) 09/12/21 10:42 Chloride 102.2 mmol/L (98-107) 09/12/21 10:42 Carbon Dioxide 24 mmol/L (22-30) 09/12/21 10:42 Anion Gap 16 mmol/L 09/12/21 10:42 BUN 12 mg/dL (9-20) 09/12/21 10:42 Creatinine 1.2 mg/dL (0.8-1.3) 09/12/21 10:42 Estimated GFR > 60 ml/min 09/12/21 10:42 BUN/Creatinine Ratio 10 % 09/12/21 10:42 Glucose 231 mg/dL (75-100) H 09/12/21 10:42 POC Glucose 178 mg/dL (70-105) H 09/12/21 16:39 Hemoglobin A1c 8.5 % (4-6) H 09/12/21 10:42 Calcium 8.3 mg/dL (8.4-10.2) L 09/12/21 10:42 Total Bilirubin 0.40 mg/dL (0.1-1.2) 09/05/21 11:35 AST 20 units/L (5-40) 09/05/21 11:35 ALT 19 units/L (7-56) 09/05/21 11:35 Alkaline Phosphatase 52 units/L (35-129) 09/05/21 11:35 Total Protein 7.1 g/dL (6.3-8.2) 09/05/21 11:35 Albumin 4.6 g/dL (3.9-5) 09/05/21 11:35 Albumin/Globulin Ratio 1.8 % 09/05/21 11:35 SARS-CoV-2 (PCR) Negative (Negative) 09/05/21 11:30 Blood Type O POSITIVE 09/11/21 06:45 Antibody Screen Negative 09/11/21 06:45 [place] Paz/IV: Voiding Method Toilet Active Medications - Current Medications Current Medications: Generic Name Dose Route Start Last Admin Trade Name Freq PRN Reason Stop Dose Admin Acetaminophen 650 mg 09/11/21 16:00 Acetaminophen 325 Mg Tab PO Q4H PRN Pain, Mild (1-3)/Fever > 100.5 Hydrocodone Bitart/Acetaminophen 2 each 09/11/21 16:00 09/13/21 08:25 Hydrocodone/Acetaminophen 5-325 Mg Tab PO 2 each Q4H PRN Administration Pain, Moderate (4-6) Diphenhydramine HCl 25 mg 09/11/21 16:00 Diphenhydramine 25 Mg Cap PO Q6H PRN Itching Glipizide 5 mg 09/12/21 08:00 09/13/21 08:25 Glipizide 5 Mg Tab PO 5 mg QDDIAB KAREN Administration Sodium Chloride 1,000 mls @ 125 mls/hr 09/11/21 16:00 09/12/21 03:05 Nacl 0.9% 1000 Ml IV 125 mls/hr DIRECT KAREN Administration Insulin Human Lispro 0 unit 09/11/21 22:00 09/13/21 07:30 Insulin Lispro 100 Unit/Ml SUB-Q 2 unit ACHS KAREN Administration Protocol Lisinopril 10 mg 09/12/21 10:00 09/12/21 11:10 Lisinopril 10 Mg Tab PO 10 mg DAILY KAREN Administration Metformin HCl 500 mg 09/12/21 08:00 09/13/21 08:25 Metformin 500 Mg Tab PO 500 mg QDDIAB KAREN Administration Morphine Sulfate 4 mg 09/11/21 16:00 Morphine 4 Mg/1 Ml Inj IV Q4H PRN Pain , Severe (7-10) Naloxone HCl 0.1 mg 09/11/21 16:00 Naloxone 0.4 Mg/1 Ml Inj IV Q2MIN PRN Res Rate </= 8 or 02 SAT < 92% Ondansetron HCl 4 mg 09/11/21 16:00 Ondansetron 4 Mg/2 Ml Inj IV Q8H PRN Nausea And Vomiting Zolpidem Tartrate 5 mg 09/11/21 22:00 Zolpidem 5 Mg Tab PO QHS PRN Sleep
[2021-09-13] MEDS: LISINOPRIL 10 MG TAB PO SCH (09:45)
--- NOTE | 2021-09-13 09:47 | Discharge Summary ---
Providers - Providers Date of Admission: 09/11/21 15:58 Date of discharge: 09/13/21 Attending physician: MELINDA ELENA 09/11/21 Consult to Case Management [CONS] Routine Services Needed at Discharge: Home Health Services Notified:: LASHAWN Additional Physician Instructions: eval for foely care & daily needs 09/11/21 15:58 Consult to Physician [CONS] Routine Comment: Consulting Provider: ELIF LAMBERT Physician Instructions: Reason For Exam: HTN Primary care physician: [employer] Hospitalization Reason for admission: prostate cancer Condition: Stable Pertinent studies: none Procedures: robotic prostatectomy 09-11-21 Hospital course: still with fair amount of pain ---[place] clear raul removed follow up ---- less pain---urine clear/ glucose up & down ---pt will monitor at home---dc home with [place] Disposition: 01 HOME / SELF CARE / HOMELESS Core Measure Documentation - Palliative Care Palliative Care/ Comfort Measures: Not Applicable - Core Measures Any of the following diagnoses?: none - VTE Discharge Requirements Deep Vein Thrombosis/Pulmonary Embolism Present on Admission: No Has pt received <5 days of overlap therapy or INR<2.0: No Anticoagulant overlap therapy prescribed at discharge: No Contraindication No Overlap Therapy order at DC: Medical Contraindication - Acute GA Discharge Requirements Aspirin at discharge: No Reason for no aspirin on DC: Surgical contraindication DARCY/ARB for LVSD if EF <40%: Not Applicable Reason for no DARCY/ARB: Medical contraindication Beta palmer at discharge: No Reason for no beta palmer on DC: Medical contraindication Statin for LDL = or >100 mg/dl on DC: Not Applicable Reason for no statin on DC: Surgical contraindication - Heart Failure Discharge Requirements DARCY/ARB for LVSD if EF <40%: Not Applicable Reason for no DARCY/ARB: Medical contraindication Beta palmer at discharge: No Reason for no beta palmer on DC: Medical contraindication - Stroke Discharge Requirements Statin for LDL = or >70 mg/dl on DC: Not Applicable Reason for no statin on DC: Medical Contraindication Anticoag for atrial fib/atrial flutter: Not Applicable Reason for no anticoag for AF/F on DC: Medical Contraindication Antithrombotic for ischemic stroke: No Reason for no antithrombotic on DC: Medical Contraindication Exam - Constitutional Vitals: Temp Pulse Resp BP Pulse Ox 98.0 F 68 16 108/66 99 09/13/21 05:21 09/13/21 05:21 09/13/21 05:21 09/13/21 05:21 09/13/21 08:14 General appearance: Present: no acute distress, well-nourished - EENT Eyes: Present: PERRL ENT: hearing intact, clear oral mucosa - Neck Neck: Present: supple, normal ROM - Respiratory Respiratory effort: normal Respiratory: bilateral: CTA - Cardiovascular Heart Sounds: Present: S1 & S2. Absent: rub, click - Extremities Extremities: pulses symmetrical, No edema Peripheral Pulses: within normal limits - Abdominal General gastrointestinal: Present: soft, non-tender, non-distended, normal bowel sounds Male genitourinary: Present: normal - Integumentary Integumentary: Present: clear, warm, dry - Musculoskeletal Musculoskeletal: gait normal, strength equal bilaterally - Psychiatric Psychiatric: appropriate mood/affect, intact judgment & insight - Neurologic Neurologic: CNII-XII intact, moves all extremities Plan Activity: advance as tolerated Diet: diabetic Wound: keep clean and dry, per your surgeon's advice Follow up with: PRIMARY CAREMD [Primary Care Provider] - 7 Days
== END 2021-09-13 11:50 | disposition home or self-care (01) ==
LOC: OR 06:06 → EDSTATUS 08:00 → 3A 15:58
PROVIDERS: ADMIT Urology; ATTEND Urology
DX: C61 Malignant neoplasm of prostate (principal); Z20.822 Contact with and (suspected) exposure to COVID-19; C64.1 Malignant neoplasm of right kidney, except renal pelvis; M54.89 Other dorsalgia; N40.0 Benign prostatic hyperplasia without lower urinary tract symptoms; E11.9 Type 2 diabetes mellitus without complications; I10 Essential (primary) hypertension; E55.9 Vitamin D deficiency, unspecified; Z79.82 Long term (current) use of aspirin; Z79.84 Long term (current) use of oral hypoglycemic drugs; Z79.899 Other long term (current) drug therapy
CPT/HCPCS: 36415; 55866; 64488; 80048; 80053; 82962; 83036; 85025; 85027; 86850; 86900; 86901; 88307; 88309; 96365; 96366; 96372; G0378; J0690; J1100; J1170; J1815; J2250; J2405; J2704; J2710; J3010; J3490; J7030; J7120; Q4140; S2900; U0003; 64450; Q9967